=== PATIENT | female | born 1935 | race African-American/Black ===

== ENCOUNTER 2017-02-08 09:04 | Inpatient (IN) | payer OTHER ==
[~2017-02-08] VITALS: Ht 165.1 cm; Wt 62.6 kg
[~2017-02-08 09:04] MED LIST: COUMADIN PO; FURO-152 PO; HYDROXYCHLOROQUINE PO; METFORMIN PO; OLME40TA12 PO; POTA20TA75 PO; ROSU20TA PO
[2017-02-08] MEDS ORDERED: ALBUTEROL (0.083%) 2.5MG/3ML NEB HHN STA (09:40)
[2017-02-08] MEDS ORDERED: IPRATROPIUM BROMIDE (0.02%) 0.5MG/2.5ML NEB HHN STA (09:40)
[2017-02-08] MEDS ORDERED: FUROSEMIDE 40MG/4ML VIAL IV STA (09:40)
[2017-02-08] MEDS ORDERED: ACETAMINOPHEN 325MG TABLET PO STA (09:41)
[2017-02-08] MEDS ORDERED: CEFTRIAXONE 1 G PREMIX 50 ML IV ONE (09:45)
[2017-02-08] MEDS ORDERED: AZITHROMYCIN 500 MG in DEXT 5% WATER 250 ML IV ONE (09:45)
[2017-02-08] MEDS ORDERED: ALBUTEROL (0.5%) 2.5MG/0.5ML NEB HHN ONE (09:54)
[2017-02-08 10:25] LABS: HEMATOCRIT. 30.9 % (36.0-48.0); HEMOGLOBIN. 10.3 g/dL (12.0-16.0); MEAN CORPUSCULAR HEMOGLOBIN 30.1 pg (28.0-32.0); MEAN CORPUSCULAR HGB CONC 33.3 g/dL (31.0-37.0); MEAN CORPUSCULAR VOLUME 90.5 fL (81.0-99.0); MEAN PLATELET VOLUME 7.9 fl (7.4-10.4); PLATELET 61 x1000/uL (130-400); RED BLOOD CELL COUNT 3.41 mill/uL (4.2-5.4); RED CELL DISTRIBUTION WIDTH 23.9 % (11.6-14.6); WHITE BLOOD COUNT 2.2 x1000/uL (4.5-11.0)
[2017-02-08 10:28] LABS: DIFFERENTIAL COMMENT 1
[2017-02-08 10:32] LABS: CHLORIDE 98 mEq/L (98-107); INDEX HEMOLYSI 1 (1-3); INDEX ICTERIC 2 (1-4); INDEX LIPEMIC 1 (1-3)
[2017-02-08 10:35] LABS: INR 1.6; PARTIAL THROMBOPLASTIN TIME 29.8 sec (24.0-34.0); PROTHROMBIN TIME 16.9 sec
[2017-02-08 10:41] LABS: ALANINE AMINOTRANSFERASE 22 IU/L (13-61); ALBUMIN 3.2 g/dL (3.4-5.0); ANION GAP 10; CARBON DIOXIDE 31 mEq/L (21-32); NT PRO B-TYPE NATRIURETIC PEP 10949 pg/mL (5-125); UREA NITROGEN BLOOD 10 mg/dL (7-21); eGFR > 60 mL/min (>60)
[2017-02-08 10:42] LABS: TROPONIN I 0.26 ng/mL (0.00-0.04)
[2017-02-08] MEDS ORDERED: ASPIRIN 325MG EC TABLET PO ONE (11:00)
[2017-02-08 11:09] LABS: ACANTHOCYTES 1+; ANISOCYTOSIS 3+; PLATELET ESTIMATE DECREASED
[2017-02-08 11:15] LABS: CLARITY URINE CLOUDY (CLEAR); COLOR URINE YELLOW (YELLOW); GLUCOSE URINE NEGATIVE (NEGATIVE); KETONES URINE NEGATIVE (NEGATIVE); LEUKOCYTE ESTERASE URINE 3+ (NEGATIVE); NITRITE URINE POSITIVE (NEGATIVE); OCCULT BLOOD URINE 2+ (NEGATIVE); PROTEIN URINE 1+ (NEGATIVE); SPECIFIC GRAVITY URINE 1.009 (1.005-1.030); UROBILINOGEN URINE 0.2 E.U./dL (0.2-1.0)
[2017-02-08 11:50] LABS: SQUAMOUS EPITHELIAL CELL URINE FEW /lpf (RARE/1+)
[2017-02-08 11:51] LABS: BACTERIA URINE 4+
[2017-02-08 11:52] LABS: RBC URINE 0-2 /hpf (0-2); WBC URINE 50-100 /hpf (0-2); YEAST URINE FEW
[2017-02-08 14:20] VITALS: BP 103/64
[2017-02-08] MEDS: METOPROLOL TARTRATE 25MG TABLET PO SCH ×2 (15:12→21:00)
[2017-02-08] MEDS ORDERED: ONDANSETRON HCL 4MG/2ML VIAL IV PRN (15:15)
[2017-02-08] MEDS ORDERED: LEVOFLOXACIN 500MG PREMIX 100 ML IV SCH (15:15)
[2017-02-08] MEDS ORDERED: DOCUSATE SODIUM 100MG CAPSULE PO PRN (15:15)
[2017-02-08] MEDS ORDERED: CLONIDINE 0.1MG TABLET PO PRN (15:15)
[2017-02-08] MEDS ORDERED: MAGNESIUM/ALUMINUM HYDROXIDE/SIMETHICONE 30ML UDC PO PRN (15:15)
[2017-02-08] MEDS ORDERED: HYDROCODONE/ACETAMINOPHEN 5/325MG TABLET PO PRN (15:15)
[2017-02-08 16:00] VITALS: BP 132/67
[2017-02-08] MEDS ORDERED: ENOXAPARIN 40MG/0.4ML SYR SUBCUT SCH (16:00)
[2017-02-08] MEDS: POTASSIUM CHLORIDE 20MEQ TABLET SR PO SCH (16:16)
[2017-02-08] MEDS ORDERED: GLIM4TAB2 PO (16:45)
[2017-02-08] MEDS ORDERED: LOSA50TA20 PO (16:45)
[2017-02-08] MEDS ORDERED: LEVOFLOXACIN 500MG PREMIX 100 ML IV NR (17:00)
[2017-02-08] MEDS: SODIUM CHLORIDE 0.45% 1,000 ML IV SCH (17:43)
[2017-02-08] MEDS: DILTIAZEM HCL 30MG TABLET PO SCH (17:43)
[2017-02-08] MEDS ORDERED: WARFARIN SODIUM 7.5MG TABLET PO SCH (18:00)
[2017-02-08 20:00] VITALS: BP 101/57
[2017-02-08 22:48] LABS: TROPONIN I 0.21 ng/mL (0.00-0.04)
[2017-02-09] VITALS: BP 113/57
[2017-02-09] MEDS ORDERED: ACETAMINOPHEN 325MG TABLET PO PRN (01:00)
[2017-02-09] MEDS: GUAIFENESIN 200MG/10ML SUGAR FREE UDC PO PRN ×2 (01:30→09:01)
[2017-02-09] MEDS: DILTIAZEM HCL 30MG TABLET PO SCH ×4 (01:30→17:07)
[2017-02-09 04:00] VITALS: BP 94/45
[2017-02-09 06:07] LABS: INR 1.9; PROTHROMBIN TIME 20.4 sec
[2017-02-09 07:47] LABS: ALANINE AMINOTRANSFERASE 18 IU/L (13-61); ALBUMIN 2.8 g/dL (3.4-5.0); ANION GAP 13; CALCIUM 7.7 mg/dL (8.5-10.1); CARBON DIOXIDE 30 mEq/L (21-32); CHLORIDE 98 mEq/L (98-107); CREATINE KINASE 87 IU/L (26-192); INDEX HEMOLYSI 1 (1-3); INDEX ICTERIC 1 (1-4); INDEX LIPEMIC 1 (1-3); LDL CHOLESTEROL 71 mg/dL (5-100); TRIGLYCERIDE 50 mg/dL (0-150); UREA NITROGEN BLOOD 13 mg/dL (7-21); eGFR > 60 mL/min (>60)
[2017-02-09 07:49] LABS: HDL CHOLESTEROL 22 mg/dL (40-59); TROPONIN I 0.21 ng/mL (0.00-0.04)
[2017-02-09 08:00] VITALS: BP 130/76
[2017-02-09 08:06] LABS: HEMATOCRIT. 28.4 % (36.0-48.0); HEMOGLOBIN. 9.3 g/dL (12.0-16.0); MEAN CORPUSCULAR HEMOGLOBIN 29.8 pg (28.0-32.0); MEAN CORPUSCULAR HGB CONC 32.9 g/dL (31.0-37.0); MEAN CORPUSCULAR VOLUME 90.6 fL (81.0-99.0); MEAN PLATELET VOLUME 8.5 fl (7.4-10.4); PLATELET 54 x1000/uL (130-400); RED BLOOD CELL COUNT 3.14 mill/uL (4.2-5.4)
[2017-02-09 08:18] LABS: DIFFERENTIAL COMMENT 1
[2017-02-09 08:19] LABS: WHITE BLOOD COUNT 1.8 x1000/uL (4.5-11.0)
[2017-02-09] MEDS ORDERED: FUROSEMIDE 40MG/4ML VIAL IVP SCH (09:00)
[2017-02-09] MEDS: POTASSIUM CHLORIDE 20MEQ TABLET SR PO SCH (09:02)
[2017-02-09] MEDS: ASPIRIN 81MG EC TABLET PO SCH (09:02)
[2017-02-09] MEDS: METOPROLOL TARTRATE 25MG TABLET PO SCH ×2 (09:03→21:24)
[2017-02-09] MEDS: SODIUM CHLORIDE 0.45% 1,000 ML IV SCH (09:04)
[2017-02-09] MEDS ORDERED: POTASSIUM CHLORIDE 20MEQ TABLET SR PO NR (09:30)
[2017-02-09 10:45] LABS: PLATELET ESTIMATE DECREASED; ROULEAUX 1+
[2017-02-09 10:46] LABS: ANISOCYTOSIS 2+
[2017-02-09 12:00] VITALS: BP 104/51
[2017-02-09 16:00] VITALS: BP 103/52
[2017-02-09] MEDS: METHYLPREDNISOLONE SOD SUCC 125 MG/2 ML VIAL IV SCH ×2 (16:36→21:24)
[2017-02-09] MEDS: LEVOFLOXACIN 250MG PREMIX 50 ML IV SCH (16:36)
[2017-02-09] MEDS ORDERED: WARFARIN SODIUM 2MG TABLET PO NR (18:00)
[2017-02-09 20:00] VITALS: BP 113/67
[2017-02-09] MEDS: IPRATROPIUM/ALBUTEROL 0.5-3(2.5)MG/3ML NEB HHN SCH (20:53)
[2017-02-09] MEDS ORDERED: DEXTROSE 50% WATER 50ML SYRINGE IV PRN (23:30)
[2017-02-10] VITALS (7 sets, daily range): BP systolic 96–132; BP diastolic 55–73
[2017-02-10] MEDS: DILTIAZEM HCL 30MG TABLET PO SCH ×4 (00:02→18:00)
[2017-02-10] MEDS: SODIUM CHLORIDE 0.45% 1,000 ML IV SCH ×2 (00:02→17:41)
[2017-02-10] MEDS: IPRATROPIUM/ALBUTEROL 0.5-3(2.5)MG/3ML NEB HHN SCH ×4 (03:16→20:13)
[2017-02-10] MEDS: METHYLPREDNISOLONE SOD SUCC 125 MG/2 ML VIAL IV SCH ×3 (05:20→21:09)
[2017-02-10 06:07] LABS: HEMATOCRIT. 32.7 % (36.0-48.0); HEMOGLOBIN. 10.6 g/dL (12.0-16.0); MEAN CORPUSCULAR HEMOGLOBIN 29.4 pg (28.0-32.0); MEAN CORPUSCULAR HGB CONC 32.5 g/dL (31.0-37.0); MEAN CORPUSCULAR VOLUME 90.5 fL (81.0-99.0); MEAN PLATELET VOLUME 8.7 fl (7.4-10.4); PLATELET 55 x1000/uL (130-400); RED BLOOD CELL COUNT 3.62 mill/uL (4.2-5.4); RED CELL DISTRIBUTION WIDTH 23.5 % (11.6-14.6)
[2017-02-10 06:12] LABS: INR 2.7; PROTHROMBIN TIME 27.8 sec
[2017-02-10 06:31] LABS: ANION GAP 16; CALCIUM 8.4 mg/dL (8.5-10.1); CARBON DIOXIDE 27 mEq/L (21-32); CHLORIDE 97 mEq/L (98-107); INDEX HEMOLYSI 2 (1-3); INDEX ICTERIC 1 (1-4); INDEX LIPEMIC 1 (1-3); UREA NITROGEN BLOOD 23 mg/dL (7-21); eGFR > 60 mL/min (>60)
[2017-02-10 07:01] LABS: DIFFERENTIAL COMMENT 1
[2017-02-10 07:03] LABS: WHITE BLOOD COUNT 1.4 x1000/uL (4.5-11.0)
[2017-02-10] MEDS: BLOOD SUGAR DIAGNOSTIC STRIP TEST SCH ×4 (07:40→21:09)
[2017-02-10 08:04] LABS: ANISOCYTOSIS 1+
[2017-02-10 08:05] LABS: PLATELET ESTIMATE MARKEDLY DECREASED
[2017-02-10] MEDS: INSULIN LISPRO 100 UNITS/ML SUBCUT SCH ×4 (08:10→21:27)
[2017-02-10] MEDS: ASPIRIN 81MG EC TABLET PO SCH (10:47)
[2017-02-10] MEDS: POTASSIUM CHLORIDE 20MEQ TABLET SR PO SCH (10:47)
[2017-02-10] MEDS: METOPROLOL TARTRATE 25MG TABLET PO SCH ×2 (10:47→20:53)
[2017-02-10] MEDS: LEVOFLOXACIN 250MG PREMIX 50 ML IV SCH (17:28)
[2017-02-11] MEDS: DILTIAZEM HCL 30MG TABLET PO SCH ×3 (00:16→12:00)
[2017-02-11] MEDS: IPRATROPIUM/ALBUTEROL 0.5-3(2.5)MG/3ML NEB HHN SCH ×3 (01:50→12:07)
[2017-02-11 04:00] VITALS: BP 115/63
[2017-02-11 05:22] LABS: PROTHROMBIN TIME 41.8 sec
[2017-02-11] MEDS: METHYLPREDNISOLONE SOD SUCC 125 MG/2 ML VIAL IV SCH ×2 (05:30→13:41)
[2017-02-11] MEDS: BLOOD SUGAR DIAGNOSTIC STRIP TEST SCH ×2 (05:36→12:40)
[2017-02-11 06:16] LABS: HEMATOCRIT. 34.3 % (36.0-48.0); HEMOGLOBIN. 11.3 g/dL (12.0-16.0); MEAN CORPUSCULAR HEMOGLOBIN 29.7 pg (28.0-32.0); MEAN CORPUSCULAR HGB CONC 32.8 g/dL (31.0-37.0); MEAN CORPUSCULAR VOLUME 90.5 fL (81.0-99.0); MEAN PLATELET VOLUME 9.2 fl (7.4-10.4); PLATELET 63 x1000/uL (130-400); RED BLOOD CELL COUNT 3.79 mill/uL (4.2-5.4); RED CELL DISTRIBUTION WIDTH 23.3 % (11.6-14.6); WHITE BLOOD COUNT 2.4 x1000/uL (4.5-11.0)
[2017-02-11 06:19] LABS: DIFFERENTIAL COMMENT 1
[2017-02-11 08:00] VITALS: BP 117/69
[2017-02-11] MEDS: POTASSIUM CHLORIDE 20MEQ TABLET SR PO SCH (08:56)
[2017-02-11] MEDS: ASPIRIN 81MG EC TABLET PO SCH (08:57)
[2017-02-11] MEDS: METOPROLOL TARTRATE 25MG TABLET PO SCH (08:57)
[2017-02-11] MEDS: INSULIN LISPRO 100 UNITS/ML SUBCUT SCH ×2 (09:06→13:47)
[2017-02-11 12:00] VITALS: BP 103/67
[2017-02-11 12:38] LABS: ACANTHOCYTES 1+; ANISOCYTOSIS 1+; NUCLEATED RED BLOOD CELLS 2 /100 WBC; PLATELET ESTIMATE DECREASED
[2017-02-11 14:33] VITALS: BP 103/67
[2017-02-11 16:00] VITALS: BP 98/60
== END 2017-02-11 16:33 | disposition home or self-care (01) | DRG 871 ==
LOC: ER 09:29 → 7WST 14:15
PROVIDERS: ADMIT Internal Medicine; ATTEND Internal Medicine
DX: A41.9 Sepsis, unspecified organism (principal); J18.9 Pneumonia, unspecified organism; I50.23 Acute on chronic systolic (congestive) heart failure; D61.818 Other pancytopenia; J44.0 Chronic obstructive pulmonary disease with (acute) lower respiratory infection; J44.1 Chronic obstructive pulmonary disease with (acute) exacerbation; N39.0 Urinary tract infection, site not specified; I48.1 Persistent atrial fibrillation; I48.2 Chronic atrial fibrillation; E11.51 Type 2 diabetes mellitus with diabetic peripheral angiopathy without gangrene; E78.00 Pure hypercholesterolemia, unspecified; E87.6 Hypokalemia; E86.0 Dehydration; I11.0 Hypertensive heart disease with heart failure; E16.2 Hypoglycemia, unspecified; I45.10 Unspecified right bundle-branch block; K57.90 Diverticulosis of intestine, part unspecified, without perforation or abscess without bleeding; M79.89 Other specified soft tissue disorders; E78.5 Hyperlipidemia, unspecified; I25.10 Atherosclerotic heart disease of native coronary artery without angina pectoris; Z79.01 Long term (current) use of anticoagulants; Z79.4 Long term (current) use of insulin; Z86.79 Personal history of other diseases of the circulatory system; Z95.1 Presence of aortocoronary bypass graft; Z95.2 Presence of prosthetic heart valve; Z95.810 Presence of automatic (implantable) cardiac defibrillator; Z88.0 Allergy status to penicillin; Z88.7 Allergy status to serum and vaccine
CPT/HCPCS: 36415; 71010; 80048; 80053; 80061; 81001; 82550; 82962; 83605; 83880; 84484; 85025; 85044; 85610; 85730; 87040; 87077; 87086; 87186; 87804; 93005; 93306; 93970; 94640; 94664; 96365; 96367; 96375; 99285; C1893; J0456; J0696; J1815; J1940; J1956; J2930; J7040; J7060; J7611; J7620

== ENCOUNTER 2017-06-02 08:53 | Inpatient (IN) | payer MEDICARE, OTHER ==
[~2017-06-02] VITALS: Ht 165.1 cm; Wt 70.8 kg
[2017-06-02] VITALS (37 sets, daily range): BP systolic 61–119; BP diastolic 23–68
[~2017-06-02 08:53] MED LIST changes: -COUMADIN PO; +GLIM4TAB2 PO; +LOSA50TA20 PO
[2017-06-02] MEDS ORDERED: WARF4TAB39 PO (09:15)
[2017-06-02] MEDS ORDERED: ASPI-1159 PO (09:21)
[2017-06-02] MEDS ORDERED: GLIM4TAB2 PO ×2 (09:34→15:21)
[2017-06-02] MEDS ORDERED: ACET-2178 PO (09:34)
[2017-06-02] MEDS ORDERED: [UNRECOGNIZED DRUG - OTHER] (09:34)
[2017-06-02] MEDS ORDERED: LOV60 SQ (09:48)
[2017-06-02] MEDS ORDERED: DIGO125T82 PO (09:48)
[2017-06-02] MEDS ORDERED: CENTRUM SILVER PO (09:48)
[2017-06-02] MEDS ORDERED: CALCIUM/VIT D3 PO (09:48)
[2017-06-02] MEDS ORDERED: SODIUM CHLORIDE 0.9% 1,000 ML IV ONE (10:47)
[2017-06-02 11:18] LABS: MEAN CORPUSCULAR HEMOGLOBIN 36.1 pg (28.0-32.0); MEAN CORPUSCULAR VOLUME 102.9 fL (81.0-99.0); MEAN PLATELET VOLUME 7.5 fl (7.4-10.4); RED BLOOD CELL COUNT 1.73 mill/uL (4.2-5.4); RED CELL DISTRIBUTION WIDTH 18.1 % (11.6-14.6)
[2017-06-02 11:25] LABS: INR 1.4; PROTHROMBIN TIME 14.2 sec
[2017-06-02 11:26] LABS: HEMATOCRIT. 17.8 % (36.0-48.0); HEMOGLOBIN. 6.3 g/dL (12.0-16.0)
[2017-06-02 11:27] LABS: PLATELET 17 x1000/uL (130-400)
[2017-06-02 11:29] LABS: CARBON DIOXIDE 27 mEq/L (21-32); CHLORIDE 102 mEq/L (98-107)
[2017-06-02 12:11] LABS: CLARITY URINE TURBID (CLEAR); COLOR URINE YELLOW (YELLOW); GLUCOSE URINE NEGATIVE (NEGATIVE); KETONES URINE TRACE (NEGATIVE); LEUKOCYTE ESTERASE URINE 3+ (NEGATIVE); NITRITE URINE POSITIVE (NEGATIVE); OCCULT BLOOD URINE 2+ (NEGATIVE); PROTEIN URINE 1+ (NEGATIVE); SPECIFIC GRAVITY URINE 1.014 (1.005-1.030); UROBILINOGEN URINE 0.2 E.U./dL (0.2-1.0)
[2017-06-02 12:48] LABS: PLATELET ESTIMATE MARKEDLY DECREASED
[2017-06-02] MEDS ORDERED: CEFTRIAXONE 1 G PREMIX 50 ML IV ONE (13:15)
[2017-06-02] MEDS ORDERED: ACETAMINOPHEN 325MG TABLET ONE (13:46)
[2017-06-02] MEDS ORDERED: VANCOMYCIN 1 G PREMIX 200 ML IV STA (17:02)
[2017-06-02] MEDS: DEXT 5%/0.9% NACL 1,000 ML IV SCH (18:24)
[2017-06-02] MEDS ORDERED: NOREPINEPHRINE 8 MG in DEXT 5% WATER 242 ML IV PRN (18:45)
[2017-06-02] MEDS ORDERED: GENTAMICIN SULFATE 140 MG in SODIUM CHLORIDE 0.9% 50 ML IV NR (20:00)
[2017-06-02] MEDS ORDERED: VANCOMYCIN 1500MG in DEXTROSE 5% WATER 250ML IV NR (20:00)
[2017-06-03] VITALS (76 sets, daily range): BP systolic 2–131; BP diastolic 25–68
[2017-06-03 04:52] LABS: HEMATOCRIT. 26.1 % (36.0-48.0); MEAN CORPUSCULAR HEMOGLOBIN 34.4 pg (28.0-32.0); MEAN PLATELET VOLUME 8.5 fl (7.4-10.4); RED BLOOD CELL COUNT 2.61 mill/uL (4.2-5.4); RED CELL DISTRIBUTION WIDTH 20.6 % (11.6-14.6)
[2017-06-03 05:00] LABS: CARBON DIOXIDE 24 mEq/L (21-32); CHLORIDE 105 mEq/L (98-107)
[2017-06-03 05:05] LABS: PLATELET 13 x1000/uL (130-400)
[2017-06-03] MEDS: DEXT 5%/0.9% NACL 1,000 ML IV SCH (06:29)
[2017-06-03] MEDS ORDERED: DEXTROSE 50% WATER 50ML SYRINGE IV PRN (10:45)
[2017-06-03] MEDS ORDERED: HYDROCODONE/ACETAMINOPHEN 5/325MG TABLET PO PRN (10:45)
[2017-06-03 10:54] LABS: PLATELET ESTIMATE MARKEDLY DECREASED
[2017-06-03] MEDS: SODIUM CHLORIDE 0.9% 1,000 ML IV SCH (11:18)
[2017-06-03] MEDS: PANTOPRAZOLE 40MG DR TABLET PO SCH (11:18)
[2017-06-03] MEDS: BLOOD SUGAR DIAGNOSTIC STRIP TEST SCH ×3 (11:35→21:19)
[2017-06-03] MEDS: INSULIN LISPRO 100 UNITS/ML SUBCUT SCH ×3 (12:31→21:22)
[2017-06-03] MEDS: VANCOMYCIN 1 G PREMIX 200 ML IV SCH (15:16)
[2017-06-03] MEDS ORDERED: GENTAMICIN 120MG PREMIX 100 ML IV SCH (20:00)
[2017-06-04] VITALS (65 sets, daily range): BP systolic 63–142; BP diastolic 35–77
[2017-06-04] MEDS: SODIUM CHLORIDE 0.9% 1,000 ML IV SCH ×2 (01:03→15:02)
[2017-06-04 05:15] LABS: HEMATOCRIT. 22.7 % (36.0-48.0); HEMOGLOBIN. 7.7 g/dL (12.0-16.0); MEAN CORPUSCULAR HEMOGLOBIN 34.2 pg (28.0-32.0); MEAN CORPUSCULAR VOLUME 100.3 fL (81.0-99.0); MEAN PLATELET VOLUME 8.5 fl (7.4-10.4); RED BLOOD CELL COUNT 2.26 mill/uL (4.2-5.4); RED CELL DISTRIBUTION WIDTH 20.8 % (11.6-14.6)
[2017-06-04 05:46] LABS: CARBON DIOXIDE 24 mEq/L (21-32); CHLORIDE 108 mEq/L (98-107)
[2017-06-04] MEDS: BLOOD SUGAR DIAGNOSTIC STRIP TEST SCH ×4 (06:03→21:29)
[2017-06-04] MEDS: INSULIN LISPRO 100 UNITS/ML SUBCUT SCH ×4 (06:04→21:00)
[2017-06-04] MEDS: PANTOPRAZOLE 40MG DR TABLET PO SCH (06:08)
[2017-06-04] MEDS: VANCOMYCIN 1 G PREMIX 200 ML IV SCH (08:14)
[2017-06-04 09:02] LABS: PLATELET ESTIMATE MARKEDLY DECREASED
[2017-06-04 09:04] LABS: PLATELET 10 x1000/uL (130-400)
[2017-06-04] MEDS ORDERED: POTASSIUM CHLORIDE 20MEQ TABLET SR PO NR (13:30)
[2017-06-04] MEDS: LEVOFLOXACIN 500MG PREMIX 100 ML IV SCH (14:55)
[2017-06-04] MEDS ORDERED: BISACODYL 10MG SUPP PR PRN (18:30)
[2017-06-04] MEDS ORDERED: ACETAMINOPHEN 325MG TABLET PO PRN (18:30)
[2017-06-04] MEDS ORDERED: ACETAMINOPHEN 325MG SUPP PR PRN ×2 (22:30)
[2017-06-04] MEDS ORDERED: ONDANSETRON HCL 4MG/2ML VIAL IV PRN (22:30)
[2017-06-04] MEDS ORDERED: ACETAMINOPHEN 650MG SUPP PR PRN (22:45)
[2017-06-04] MEDS ORDERED: METOCLOPRAMIDE HCL 10MG/2ML VIAL IV PRN (23:45)
[2017-06-05] VITALS (52 sets, daily range): BP systolic 92–129; BP diastolic 38–67
[2017-06-05 05:56] LABS: CARBON DIOXIDE 23 mEq/L (21-32); CHLORIDE 108 mEq/L (98-107); VANCOMYCIN TROUGH 16.5 ug/mL (5.0-10.0)
[2017-06-05] MEDS ORDERED: VANCOMYCIN 1 G PREMIX 200 ML IV SCH (06:00)
[2017-06-05] MEDS: BLOOD SUGAR DIAGNOSTIC STRIP TEST SCH ×4 (06:16→20:52)
[2017-06-05] MEDS: INSULIN LISPRO 100 UNITS/ML SUBCUT SCH ×4 (06:23→20:52)
[2017-06-05 07:42] LABS: HEMATOCRIT. 23.1 % (36.0-48.0); HEMOGLOBIN. 7.9 g/dL (12.0-16.0); MEAN CORPUSCULAR HEMOGLOBIN 33.2 pg (28.0-32.0); MEAN CORPUSCULAR VOLUME 97.2 fL (81.0-99.0); MEAN PLATELET VOLUME 7.2 fl (7.4-10.4); RED BLOOD CELL COUNT 2.38 mill/uL (4.2-5.4)
[2017-06-05] MEDS: PANTOPRAZOLE 40MG DR TABLET PO SCH (08:18)
[2017-06-05 08:30] LABS: PLATELET 26 x1000/uL (130-400)
[2017-06-05] MEDS ORDERED: BISACODYL 5MG TABLET PO PRN (13:30)
[2017-06-05 13:59] LABS: ATYPICAL LYMPHOCYTES 2
[2017-06-05 14:00] LABS: PLATELET ESTIMATE MARKEDLY DECREASED
[2017-06-05] MEDS: SODIUM CHLORIDE 0.9% 1,000 ML IV SCH (15:04)
[2017-06-05] MEDS: LEVOFLOXACIN 500MG PREMIX 100 ML IV SCH (15:45)
[2017-06-06] VITALS (27 sets, daily range): BP systolic 90–129; BP diastolic 42–65
[2017-06-06 05:42] LABS: HEMATOCRIT. 25.7 % (36.0-48.0); HEMOGLOBIN. 8.9 g/dL (12.0-16.0); MEAN CORPUSCULAR VOLUME 95.4 fL (81.0-99.0); RED BLOOD CELL COUNT 2.69 mill/uL (4.2-5.4); RED CELL DISTRIBUTION WIDTH 20.7 % (11.6-14.6)
[2017-06-06 05:55] LABS: PLATELET 15 x1000/uL (130-400)
[2017-06-06 06:11] LABS: CARBON DIOXIDE 21 mEq/L (21-32); CHLORIDE 107 mEq/L (98-107)
[2017-06-06] MEDS: BLOOD SUGAR DIAGNOSTIC STRIP TEST SCH ×4 (06:44→20:15)
[2017-06-06] MEDS: INSULIN LISPRO 100 UNITS/ML SUBCUT SCH ×5 (06:45→20:15)
[2017-06-06] MEDS: PANTOPRAZOLE 40MG DR TABLET PO SCH (06:45)
[2017-06-06 08:35] LABS: PLATELET ESTIMATE MARKEDLY DECREASED
[2017-06-06] MEDS: SODIUM CHLORIDE 0.9% 1,000 ML IV SCH ×3 (10:15→22:55)
[2017-06-06] MEDS: VANCOMYCIN 1250MG in DEXTROSE 5% WATER 250ML IV SCH (10:35)
[2017-06-06 12:23] LABS: INR 1.7; PROTHROMBIN TIME 17.4 sec
[2017-06-06] MEDS: LEVOFLOXACIN 500MG PREMIX 100 ML IV SCH (14:31)
[2017-06-07] VITALS: BP 119/61
[2017-06-07 04:00] VITALS: BP 109/57
[2017-06-07] MEDS: BLOOD SUGAR DIAGNOSTIC STRIP TEST SCH ×4 (06:16→21:17)
[2017-06-07 06:31] LABS: HEMATOCRIT. 25.2 % (36.0-48.0); HEMOGLOBIN. 8.6 g/dL (12.0-16.0); MEAN CORPUSCULAR HEMOGLOBIN 32.9 pg (28.0-32.0); MEAN CORPUSCULAR VOLUME 96.1 fL (81.0-99.0); MEAN PLATELET VOLUME 8.6 fl (7.4-10.4); RED BLOOD CELL COUNT 2.62 mill/uL (4.2-5.4); RED CELL DISTRIBUTION WIDTH 19.6 % (11.6-14.6)
[2017-06-07] MEDS: INSULIN LISPRO 100 UNITS/ML SUBCUT SCH ×4 (07:27→21:00)
[2017-06-07] MEDS: PANTOPRAZOLE 40MG DR TABLET PO SCH (07:40)
[2017-06-07 07:58] LABS: PLATELET 11 x1000/uL (130-400)
[2017-06-07 08:00] VITALS: BP 123/55
[2017-06-07] MEDS ORDERED: PROPOFOL 200MG/20ML VIAL IV ONE (08:26)
[2017-06-07] MEDS ORDERED: PHENYLEPHRINE HCL 10 MG/ML 1ML (IV VIAL) IV ONE (08:27)
[2017-06-07] MEDS ORDERED: LIDOCAINE HCL 1% 20ML VIAL (Pyxis) INJ ONE (08:51)
[2017-06-07] MEDS: VANCOMYCIN 1250MG in DEXTROSE 5% WATER 250ML IV SCH (08:59)
[2017-06-07 09:47] LABS: CARBON DIOXIDE 21 mEq/L (21-32); CHLORIDE 108 mEq/L (98-107)
[2017-06-07 11:53] VITALS: BP 121/46
[2017-06-07 13:05] LABS: PLATELET ESTIMATE MARKEDLY DECREASED
[2017-06-07] MEDS: SODIUM CHLORIDE 0.9% 1,000 ML IV SCH (14:25)
[2017-06-07 16:00] VITALS: BP 107/52
[2017-06-07] MEDS: LEVOFLOXACIN 500MG PREMIX 100 ML IV SCH (17:20)
[2017-06-07 20:00] VITALS: BP 92/47
[2017-06-08] VITALS (9 sets, daily range): BP systolic 97–142; BP diastolic 43–59
[2017-06-08] MEDS: SODIUM CHLORIDE 0.9% 1,000 ML IV SCH ×2 (03:30→22:41)
[2017-06-08 06:41] LABS: HEMATOCRIT. 23.2 % (36.0-48.0); HEMOGLOBIN. 8.1 g/dL (12.0-16.0); MEAN CORPUSCULAR HEMOGLOBIN 33.3 pg (28.0-32.0); MEAN CORPUSCULAR VOLUME 95.5 fL (81.0-99.0); RED BLOOD CELL COUNT 2.43 mill/uL (4.2-5.4)
[2017-06-08 06:45] LABS: CARBON DIOXIDE 25 mEq/L (21-32); CHLORIDE 108 mEq/L (98-107)
[2017-06-08] MEDS: BLOOD SUGAR DIAGNOSTIC STRIP TEST SCH ×4 (07:57→21:08)
[2017-06-08] MEDS: INSULIN LISPRO 100 UNITS/ML SUBCUT SCH ×4 (08:10→21:00)
[2017-06-08] MEDS: PANTOPRAZOLE 40MG DR TABLET PO SCH (08:25)
[2017-06-08] MEDS ORDERED: POTASSIUM CHLORIDE 20MEQ TABLET SR PO SCH (12:45)
[2017-06-08 14:44] LABS: PLATELET ESTIMATE MARKEDLY DECREASED
[2017-06-08 14:45] LABS: PLATELET 7 x1000/uL (130-400)
[2017-06-08] MEDS: LEVOFLOXACIN 500MG PREMIX 100 ML IV SCH (15:12)
[2017-06-09 04:12] VITALS: BP 125/57
[2017-06-09 07:06] LABS: HEMATOCRIT. 25.5 % (36.0-48.0); HEMOGLOBIN. 8.8 g/dL (12.0-16.0); MEAN CORPUSCULAR HEMOGLOBIN 32.9 pg (28.0-32.0); MEAN CORPUSCULAR VOLUME 95.8 fL (81.0-99.0); MEAN PLATELET VOLUME 9.1 fl (7.4-10.4); RED BLOOD CELL COUNT 2.66 mill/uL (4.2-5.4); RED CELL DISTRIBUTION WIDTH 19.6 % (11.6-14.6)
[2017-06-09 07:09] LABS: CARBON DIOXIDE 22 mEq/L (21-32); CHLORIDE 109 mEq/L (98-107)
[2017-06-09] MEDS: BLOOD SUGAR DIAGNOSTIC STRIP TEST SCH ×2 (07:28→11:51)
[2017-06-09] MEDS: INSULIN LISPRO 100 UNITS/ML SUBCUT SCH ×2 (07:28→11:51)
[2017-06-09] MEDS: PANTOPRAZOLE 40MG DR TABLET PO SCH (07:41)
[2017-06-09 08:00] VITALS: BP 126/58
[2017-06-09 08:04] LABS: PLATELET 12 x1000/uL (130-400)
[2017-06-09 10:32] LABS: PLATELET ESTIMATE MARKEDLY DECREASED
[2017-06-09 12:00] VITALS: BP 133/54
[2017-06-09 14:43] VITALS: BP 133/54
[2017-06-09] MEDS ORDERED: CALCIUM CARBONATE 500MG TABLET CHEW PO SCH (18:10)
== END 2017-06-09 16:10 | disposition home health service (06) | DRG 871 ==
LOC: ER 08:54 → 6WST 13:03 → EDBEDREQSVC 13:05 → EDBEDREQ 13:05 → ENRESERV 13:37 → 6WST 15:15 → MICUNO 18:00 → MICUSO 06-03 23:00 → MICUNO 06-05 10:10 → 7WST 06-06 17:21
PROVIDERS: ADMIT Internal Medicine; ATTEND Internal Medicine
PROC: 30233N1 Transfusion of Nonautologous Red Blood Cells into Peripheral Vein, Percutaneous Approach (ICD-10-PCS; 2017-06-02)
PROC: 30233R1 Transfusion of Nonautologous Platelets into Peripheral Vein, Percutaneous Approach (ICD-10-PCS; 2017-06-04)
PROC: 02HV33Z Insertion of Infusion Device into Superior Vena Cava, Percutaneous Approach (ICD-10-PCS; 2017-06-04)
PROC: B548ZZA Ultrasonography of Superior Vena Cava, Guidance (ICD-10-PCS; 2017-06-04)
PROC: 07DR3ZX Extraction of Iliac Bone Marrow, Percutaneous Approach, Diagnostic (ICD-10-PCS; principal; 2017-06-07 08:15)
DX: A41.9 Sepsis, unspecified organism (principal); R65.21 Severe sepsis with septic shock; N39.0 Urinary tract infection, site not specified; D61.818 Other pancytopenia; C92.00 Acute myeloblastic leukemia, not having achieved remission; N35.9 Urethral stricture, unspecified; I11.0 Hypertensive heart disease with heart failure; I50.9 Heart failure, unspecified; E11.51 Type 2 diabetes mellitus with diabetic peripheral angiopathy without gangrene; I48.2 Chronic atrial fibrillation; B96.1 Klebsiella pneumoniae [K. pneumoniae] as the cause of diseases classified elsewhere; E78.5 Hyperlipidemia, unspecified; I25.10 Atherosclerotic heart disease of native coronary artery without angina pectoris; K59.00 Constipation, unspecified; R50.81 Fever presenting with conditions classified elsewhere; Z66 Do not resuscitate; Z95.0 Presence of cardiac pacemaker; Z95.1 Presence of aortocoronary bypass graft; Z95.2 Presence of prosthetic heart valve; Z88.0 Allergy status to penicillin; Z88.7 Allergy status to serum and vaccine; Z79.899 Other long term (current) drug therapy; Z79.4 Long term (current) use of insulin
CPT/HCPCS: 36415; 36569; 38220; 71010; 76937; 80048; 80053; 80202; 81001; 82962; 83605; 83735; 84443; 85025; 85060; 85097; 85610; 86850; 86900; 86920; 86945; 87040; 87077; 87086; 87186; 88313; 93005; 93306; 93970; 96374; 97116; 97162; 99285; C1725; C1769; C1892; J0696; J1580; J1815; J1956; J2370; J2405; J2704; J3370; J3490; J7030; J7040; J7042; J7050; J7060; P9016; P9034; A4315